=== PATIENT | female | born 1965 | race Caucasian/White ===

== ENCOUNTER 2025-01-04 13:30 | Outpatient (RCR) | payer BC, SELFPAY ==
--- NOTE | 2024-12-14 15:57 | OPREHPOC ---
Outpatient Therapy Plan of Care This is a Multidisciplinary Plan of Care that may contain components documented by all disciplines (PT, OT, and ST.) PT Problem 1 PT Problem #1 Knowledge Deficit PT Goal 1 Goal / Goal Update 1. Patient will perform independent HEP 2. Patient will verbalize urge suppression strategies Target Visit 2 PT Problem 2 PT Problem #2 Impaired Strength PT Goal 1 Goal / Goal Update 1. Improve pelvic floor strength to 4/5 to reduce symptoms of prolapse and urge incontinence 2. Improve pelvic floor endurance to 10 seconds to reduce symptoms of prolapse and urge incontinence 3. Improve hip strength to 5/5 ted in all planes Target Visit 4 PT Problem 3 PT Problem #3 Impaired Functional ADLs PT Goal 1 Goal / Goal Update 1. Patient will report no urge incontinence for at least 6 weeks 2. Patient will report no symptoms of prolapse for at least 2 weeks Target Visit 4
--- NOTE | 2024-12-14 15:57 | PTOPEVAL1 ---
Assessment and note entered by Adina Hayes DPT Evaluation Information Assessment Status Evaluation Diagnosis N81.10 ICD-10 Condition Codes (PT) Weakness R53.1,Urge incontinence N39.41 Subjective Information Pt reports she can tell that something is hanging and has been getting worse. Voids 8-10 times a day and 1 time at night. Typically does not get urinary incontinence, may get urge incontinence once a month if she waits too long. Can hold urge at least 30+ minutes on average. Denies pain with urination. BM usually 1 time a day without pain or incontinence. No history of pelvic pain. Was not able to use tampons due to difficulty keeping them in but not due to pain. Pt has been 3 times, all vaginal with episiotomies. Patient goal: feel better Returns to MD in a year. Reported Pain Level Pain Score 0: Self Report Assessment PT Clinical Summary The patient is presenting to skilled therapy with pelvic organ prolapse. She also reports infrequent urge incontinence. She presents with decreased pelvic floor strength and endurance, as well as decreased hip and abdominal strength. These impairments are contributing to her symptoms of prolapse and incontinence and she will highly benefit from skilled therapy to reduce symptoms and incontinence in order to return to full function. Plan of Care Interventions Manual Therapy,Neuro Re-education,Patient/ Caregiver Education,Therapeutic Activities, Therapeutic Exercise PT Services Indicated Yes Treatment Frequency and 1 time a week for 4 visits Duration These treatments will address the objective and functional deficits as defined above. The patient will be advanced safely and appropriately in order for the patient to progress towards his/her prior level of function. Additional exercises will be introduced and as well as a comprehensive home exercise program upon discharge, if needed, ?to ensure carryover of functional gains achieved in the clinic. This treatment plan has been reviewed and agreement upon by the patient.
--- NOTE | 2025-01-04 14:03 | OPREHPOC ---
Outpatient Therapy Plan of Care This is a Multidisciplinary Plan of Care that may contain components documented by all disciplines (PT, OT, and ST.) PT Problem 1 PT Problem #1 Knowledge Deficit PT Goal 1 Goal / Goal Update 1. Patient will perform independent HEP 2. Patient will verbalize urge suppression strategies Target Visit 2 Progress Met PT Problem 2 PT Problem #2 Impaired Strength PT Goal 1 Goal / Goal Update 1. Improve pelvic floor strength to 4/5 to reduce symptoms of prolapse and urge incontinence 2. Improve pelvic floor endurance to 10 seconds to reduce symptoms of prolapse and urge incontinence 3. Improve hip strength to 5/5 ted in all planes update 01/04/25 1. not met 2. improved to 5 3. met all except R hip abduction Target Visit 4 Progress Partially Met PT Problem 3 PT Problem #3 Impaired Functional ADLs PT Goal 1 Goal / Goal Update 1. Patient will report no urge incontinence for at least 6 weeks 2. Patient will report no symptoms of prolapse for at least 2 weeks update 01/04/25 1. improved 2. no change Target Visit 4 Progress Partially Met
--- NOTE | 2025-01-04 14:03 | PTOPPROGNS ---
Assessment and note entered by Adina Hayes DPT Evaluation Information Assessment Status Evaluation Diagnosis N81.10 ICD-10 Condition Codes (PT) Weakness R53.1,Urge incontinence N39.41 Subjective Information Pt reports she is noticing some improvements with therapy. Notes she may have had less urgency with urination. No incontinence in the past few weeks. Thinks the prolapse feels the same. Assessment PT Clinical Summary The patient has made some progress in therapy. Reports decreased urgency and no incontinence recently. She demonstrates improved hip strength and improved pelvic floor endurance. She does continue to report being able to feel her prolapse but does not report heaviness or pressure. Due to her progress and independence with HEP, plan for tentative discharge this visit. Patient has been instructed in a thorough HEP and to follow up with PT and/or MD as needed. Plan of Care Interventions Manual Therapy,Neuro Re-education,Patient/ Caregiver Education,Therapeutic Activities, Therapeutic Exercise PT Services Indicated No Treatment Frequency and hold therapy pending discharge, patient to follow Duration up if any issues These treatments will address the objective and functional deficits as defined above. The patient will be advanced safely and appropriately in order for the patient to progress towards his/her prior level of function. Additional exercises will be introduced and as well as a comprehensive home exercise program upon discharge, if needed, ?to ensure carryover of functional gains achieved in the clinic. This treatment plan has been reviewed and agreement upon by the patient.
--- NOTE | 2025-02-01 15:54 | PTOPDC ---
Assessment and note entered by Adina Hayes DPT Evaluation Information Assessment Status Discharge - Pt Not Present Diagnosis N81.10 ICD-10 Condition Codes (PT) Weakness R53.1,Urge incontinence N39.41 Subjective Information - Assessment PT Clinical Summary Patient has not needed to schedule further therapy after re-evaluation. Her case will be discharged this date. Plan of Care PT Services Indicated No
== END 2025-02-02 08:30 | disposition home or self-care (01) ==
LOC: ANHGOSHPT 13:30
PROVIDERS: PCP Family Medicine; Visit Provider Nurse Practitioner Obstetrics & Gynecology
DX: N81.10 Cystocele, unspecified (principal)
CPT/HCPCS: 97112; 97161; 97530